=== PATIENT | male | born 2000 | race Caucasian/White ===

== ENCOUNTER 2022-08-19 16:37 | Emergency (ER) | payer SELFPAY ==
[~2022-08-19] VITALS: Ht 182.9 cm; Wt 90.7 kg
[2022-08-19 16:39] VITALS: BP 118/51
[2022-08-19] MEDS ORDERED: LORazepam 1 MG TAB PO ONE (16:55)
[2022-08-19 18:20] VITALS: BP 134/95
[2022-08-19] MEDS ORDERED: NACL 0.9% 1,000 ML IV ONE (18:20)
--- NOTE | 2022-08-19 18:20 | NUR ---
ATTEMPTED TO D/C PT, HR RANGING FROM 125-130. DR SCHWARTZ AWARE.
--- NOTE | 2022-08-19 19:04 | NUR ---
HR NOW 96. OKAY TO D/C BY DR SCHWARTZ
--- NOTE | 2022-08-19 19:10 | NUR ---
IV removed, catheter intact and site benign. Applied folded 4x4 gauze and tape to stop bleeding.
--- NOTE | 2022-08-19 19:13 | NUR ---
Patient discharged with v/s stable. Written and verbal after care instructions given and explained. Patient verbalized understanding. Ambulatory with steady gait. All questions addressed prior to discharge. Advised to follow up with PMD. Addendum: 08/19/22 at 1914 by [email or web address] PT GIVEN SUBSTANCE ABUSE PACKET. PT DENIED UBER.
== END 2022-08-19 19:13 | disposition home or self-care (01) ==
LOC: MED 16:37
DX: R41.0 Disorientation, unspecified (principal); F15.121 Other stimulant abuse with intoxication delirium
CPT/HCPCS: 93005; 99283; J7030